=== PATIENT | male | born 1990 | race Caucasian/White ===

== ENCOUNTER → 2016-10-01 | Outpatient (CLI) | payer BC ==
[~2016-10-01] VITALS: Ht 167.6 cm; Wt 64.5 kg
[~2016-10-01] MED LIST: SULFA
[2016-10-01 11:32] VITALS: BP 131/81; PULSE 87; Ht 167.6 cm; Wt 64.5 kg
== END | disposition home or self-care (01) ==
LOC: C.NEUR 10:55
PROVIDERS: ATTEND Internal Medicine Pulmonary Disease
DX: G47.10 Hypersomnia, unspecified (principal)

== ENCOUNTER → 2017-01-18 | Outpatient (CLI) | payer BC ==
[~2017-01-18] VITALS: Ht 167.6 cm; Wt 62.3 kg
[2017-01-18 12:35] VITALS: BP 124/80; PULSE 87; Ht 167.6 cm; Wt 62.3 kg
== END | disposition home or self-care (01) ==
LOC: C.NEUR 12:32
PROVIDERS: ATTEND Physician Assistant
DX: R53.83 Other fatigue (principal); G47.10 Hypersomnia, unspecified